=== PATIENT | female | born 1955 | race Two or more races ===

== ENCOUNTER 2022-01-10 09:10 | Day surgery (SDC) | payer MEDICARE ==
[2022-01-07 10:27] LABS: Basophils # (auto) 0.1 10 ^3/uL (0-0.2); Basophils % (auto) 1.4 % (0.0-2.0); Eosinophils # (auto) 0.4 10 ^3/uL (0-0.8); Eosinophils % (auto) 4.8 % (0.0-7.0); Hematocrit 42.8 % (36.0-46.0); Hemoglobin 14.3 g/dL (12.2-16.2); Lymphocytes # (auto) 2.4 10 ^3/uL (0.4-5.4); Lymphocytes % (auto) 32.3 % (10.0-50.0); Mean Corpuscular Hemoglobin 30.6 pg (28.0-32.0); Mean Corpuscular Hgb Conc. 33.4 g/dL (32.0-36.0); Mean Corpuscular Volume 91.5 fL (80.0-100.0); Monocytes # (auto) 0.4 10 ^3/uL (0-1.3); Monocytes % (auto) 5.9 % (0.0-12.0); Neutrophils # (auto) 4.1 10 ^3/uL (1.6-8.6); Neutrophils % (auto) 55.6 % (37.0-80.0); Nucleated Red Blood Cells % 0.1 %; Red Blood Cells 4.68 10^6/uL (4.0-5.20); Red Cell Distribution Width 14.1 % (11.8-14.3); White Blood Cell 7.5 10^3/uL (4.4-10.8)
[2022-01-07 10:45] LABS: INR 0.96 (0.9-1.15); Partial Thromboplastin Time 27.6 sec (24.6-33.4)
[2022-01-07 10:57] LABS: Albumin 3.9 g/dL (3.4-5.0); Potassium 4.5 mmol/L (3.5-5.1)
[2022-01-07 11:06] LABS: BUN/Creatinine Ratio 18.2; Bilirubin, Total 0.3 mg/dL (0.2-1.0); Total Protein 7.8 g/dL (6.4-8.2)
[~2022-01-10] VITALS: Ht 152.4 cm; Wt 54.0 kg
[~2022-01-10 09:10] MED LIST: ALEN70TA74 PO; EZET10TA22 PO
[2022-01-10] MEDS ORDERED: diphenhdrAMINE HCL 50 MG/1 ML VL ONE (10:06)
[2022-01-10] MEDS ORDERED: SODIUM CHLORIDE LOCK 10 ML ONE (10:06)
[2022-01-10] MEDS: fentaNYL CITRATE 100 MCG/2 ML VL ONE ×3 (10:17→10:26)
[2022-01-10] MEDS: MIDAZOLAM HCL 5 MG/ML-1ML VIAL ONE ×4 (10:17→10:29)
[2022-01-10] MEDS ORDERED: MIDAZOLAM HCL 5 MG/ML-1ML VIAL ONE (10:36)
[2022-01-10] MEDS ORDERED: fentaNYL CITRATE 100 MCG/2 ML VL ONE (10:36)
[2022-01-10 11:30] VITALS: BP 140/63
== END 2022-01-10 11:48 | disposition home or self-care (01) ==
LOC: GI 09:10
PROVIDERS: ATTEND Internal Medicine Gastroenterology
DX: Z12.11 Encounter for screening for malignant neoplasm of colon (principal); D12.3 Benign neoplasm of transverse colon; K57.30 Diverticulosis of large intestine without perforation or abscess without bleeding; E78.5 Hyperlipidemia, unspecified; M81.0 Age-related osteoporosis without current pathological fracture; F17.200 Nicotine dependence, unspecified, uncomplicated; Z86.010 Personal history of colon polyps; Z90.710 Acquired absence of both cervix and uterus; Z88.2 Allergy status to sulfonamides; Z20.822 Contact with and (suspected) exposure to COVID-19
CPT/HCPCS: 36415; 45380; 80053; 85025; 85610; 85730; 88305; J1200; J2250; J3010; J7030; U0003; G0500

== ENCOUNTER → 2024-02-27 | Outpatient (CLI) | payer MEDICARE ==
[2024-02-27 10:23] LABS: Urine Bacteria FEW /hpf (None Seen); Urine Blood 3+ /uL (Negative); Urine Clarity Turbid (Clear); Urine Color Light-Brown (Yellow); Urine Hyaline Cast FEW /lpf (0 - 2); Urine Protein, UAD TRACE (Negative); Urine Specific Gravity 1.005 (1.001-1.035); Urine Urobilinogen Normal (Negative); Urine WBC 264 /hpf (0 - 5); Urine WBC Clumps PRESENT /hpf (None Seen)
== END | disposition home or self-care (01) ==
LOC: LAB 09:31
PROVIDERS: ATTEND Emergency Medicine
DX: N39.0 Urinary tract infection, site not specified (principal)
CPT/HCPCS: 81001; 87086